=== PATIENT | female | born 1990 | race Caucasian/White ===

== ENCOUNTER → 2018-12-25 | Outpatient (CLI) | payer OTHER ==
--- NOTE | 2018-12-25 14:41 | US ---
EXAM DESCRIPTION: Breast,Left: Ultrasound CLINICAL HISTORY: 28 yearsFemaleK[age] LT BREAST. Minimally tender. No history of mastitis with breast feeding. No personal history of breast cancer. Remote family history of breast cancer. Childbirth. No HRT. COMPARISON: None. TECHNIQUE: Transcutaneous scanning of the left breast utilizing zhou-scale and Doppler modes. Scanning performed by the academic support specialist ; supervised by Dr. Nice. FINDINGS: Scanning retroareolar left breast the 12:00 position. Predominantly fibroglandular elements with heterogeneous islands of fatty echotexture. Homogeneous hypoechoic mass measuring 7.7 x 5.2 x 6.8 mm. Circumscribed capsule, wider than tall orientation and posterior acoustic enhancement. Minimal vascularity. Appears to be abutting or part of a dilated duct. This could represent a complicated cyst, lymph node, focal duct dilation or branch duct obstruction. No abnormal solid mass with acoustic shadowing. No distinct cyst. No large calcifications or parenchymal edema. No overlying skin changes or abnormal vascularity. IMPRESSION: BI-RADS CATEGORY: 3 - PROBABLY BENIGN. Management: Short interval (6-month) follow-up targeted left breast ultrasound. The FINDINGS and the FOLLOW-UP plan were reviewed in person with the patient after the examination. Written communication explaining the IMPRESSION and FOLLOW-UP will be mailed to the patient and referring care provider. Electronically signed by: Samuel Nice MD 12/25/2018 2:40 PM [facility]
== END ==
LOC: US 13:38
PROVIDERS: ATTEND General Practice
DX: N63.0 Unspecified lump in unspecified breast (principal)